=== PATIENT | female | born 1990 | race Caucasian/White ===

== ENCOUNTER 2017-07-30 23:09 | Emergency (ER) | payer SELFPAY ==
[~2017-07-30] VITALS: Ht 157.5 cm; Wt 91.5 kg
[2017-07-31] MEDS ORDERED: MOTRIN600 MG PO (00:31)
[2017-07-31] MEDS ORDERED: TRAMADOL HCL50 MG PO (00:31)
[2017-07-31 01:00] VITALS: BP 124/107
[2017-07-31] MEDS ORDERED: LIDOCAINE700 MG TP (18:15)
== END 2017-07-31 01:01 | disposition home or self-care (01) ==
LOC: EME 23:09 → RME 23:09
DX: S20.211A Contusion of right front wall of thorax, initial encounter (principal); W17.89XA Other fall from one level to another, initial encounter
CPT/HCPCS: 71020; 99281; 99283; J1885

== ENCOUNTER 2017-07-31 13:35 | Emergency (ER) | payer SELFPAY ==
[~2017-07-31] VITALS: Ht 157.5 cm; Wt 92.5 kg
[~2017-07-31 13:35] MED LIST: MOTRIN600 MG PO; TRAMADOL HCL50 MG PO
[2017-07-31 15:42] LABS: HEMATOCRIT 33.5 % (36.0-46.0); MCH 30.7 PG (29.0-34.0); MCHC 32.8 G/DL (30.0-36.0); MCV 93.6 FL (83-99); MEAN PLAT.VOLUME 10.3 uM^3 (9.5-12.4); PLATELET COUNT 214 K/uL (156-360); RBC DIS.WIDTH-SD 44.7 % (39-53); RED BLOOD COUNT 3.58 M/uL (3.80-5.20); WHITE BLOOD COUNT 5.9 K/uL (4.1-10.2)
[2017-07-31 15:52] LABS: CHLORIDE 106 mEq/L (99-109); POTASSIUM 4.2 mEq/L (3.7-5.4); SODIUM 140 mEq/L (136-147)
[2017-07-31 15:53] LABS: GLUCOSE 86 mg/dL (70-99)
[2017-07-31 15:55] LABS: ANION GAP 9 MEQ/L (2-14)
[2017-07-31 15:57] LABS: GFR ESTIMATE (CALCULATED) > 59 mL/min/
[2017-07-31 15:58] LABS: UREA NITROGEN (BUN) 18 mg/dL (9-23)
[2017-07-31 16:05] LABS: QUANTITATIVE HCG < 4.0 MIU/ML
[2017-07-31] MEDS ORDERED: LIDOCAINE700 MG TP (18:15)
[2017-07-31 18:17] VITALS: BP 107/68
== END 2017-07-31 18:19 | disposition home or self-care (01) ==
LOC: EME 13:35
PROVIDERS: Emergency Medicine
DX: S20.219A Contusion of unspecified front wall of thorax, initial encounter (principal); W19.XXXA Unspecified fall, initial encounter; G40.909 Epilepsy, unspecified, not intractable, without status epilepticus; Z88.5 Allergy status to narcotic agent
CPT/HCPCS: 71260; 74177; 80048; 84702; 85027; 99281; 99284; J2270; J2405